=== PATIENT | male | born 1980 | race Caucasian/White ===

== ENCOUNTER 2021-02-20 20:37 | Emergency (ER) | payer OTHER ==
[~2021-02-20] VITALS: Ht 182.9 cm; Wt 81.7 kg
[2021-02-20] MEDS ORDERED: COMPAZINE5 M1 PO (20:53)
[2021-02-20] MEDS ORDERED: CARAFATE1 GM/10 ML PO (20:53)
[2021-02-20] MEDS ORDERED: PHENERGAN25 MG/1 ML (20:53)
[2021-02-20] MEDS ORDERED: CHLORPROMAZINE100 MG PO (20:53)
[2021-02-20] MEDS ORDERED: AMITRIPTYLINE H10 M1 PO (20:53)
[2021-02-20] MEDS ORDERED: PRILOSEC2.5 MG PO (20:54)
[2021-02-21 00:41] VITALS: BP 133/97
== END 2021-02-21 00:41 | disposition home or self-care (01) ==
LOC: M.ERS 20:37
DX: S05.31XA Ocular laceration without prolapse or loss of intraocular tissue, right eye, initial encounter (principal); S00.212A Abrasion of left eyelid and periocular area, initial encounter; Z90.49 Acquired absence of other specified parts of digestive tract; Z79.899 Other long term (current) drug therapy; W01.0XXA Fall on same level from slipping, tripping and stumbling without subsequent striking against object, initial encounter; Y93.89 Activity, other specified; Y92.89 Other specified places as the place of occurrence of the external cause; Y99.8 Other external cause status

== ENCOUNTER 2021-03-16 13:29 | Emergency (ER) | payer OTHER ==
[~2021-03-16] VITALS: Ht 185.4 cm; Wt 79.4 kg
[~2021-03-16 13:29] MED LIST: AMITRIPTYLINE H10 M1 PO; CARAFATE1 GM/10 ML PO; CHLORPROMAZINE100 MG PO; COMPAZINE5 M1 PO; PHENERGAN25 MG/1 ML; PRILOSEC2.5 MG PO
[2021-03-16 14:43] LABS: ABSOLUTE BASOPHILS 0.1 thou/uL (0.0-0.2); ABSOLUTE EOSINOPHILS 0.1 thou/uL (0.0-0.7); ABSOLUTE LYMPHOCYTES 1.5 thou/uL (0.8-5.3); ABSOLUTE MONOCYTES 1.2 thou/uL (0.0-1.2); ABSOLUTE NEUTROPHILS 12.1 thou/uL (1.6-8.1); BASOPHILS 0.7 %; EOSINOPHILS 0.4 %; HEMATOCRIT 46.6 % (42.0-52.0); HEMOGLOBIN 16.2 gm/dL (14.0-18.0); LYMPHOCYTES 10.1 %; MCH 32.1 pg (26.0-34.0); MCHC 34.8 g/dL (28.0-37.0); MCV 92.3 fL (80.0-100.0); MONOCYTES 7.9 %; MPV 7.1 fl. (7.2-11.1); NUCLEATED RBCS 0 /100WBC; PLATELET COUNT* 471 thou/uL (150-400); POLYS 80.9 %; RBC 5.05 mil/uL (4.50-6.00); RDW-CV 13.7 % (10.5-14.5); WBC 14.9 thou/uL (4.0-11.0)
[2021-03-16 14:45] LABS: POTASSIUM 3.6 mmol/L (3.5-5.1)
[2021-03-16 16:05] VITALS: BP 123/85
--- NOTE | 2021-03-16 16:16 | EKG ---
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 : 1980 Requested By: Vasu Clements Order Number: [id number] MD: Alton Anderson Measurements Intervals [place] Rate: 120 P: 47 IA: 132 QRS: 10 QRSD: 92 T: 77 QT: 316 QTc: 447 Interpretive Statements Sinus tachycardia Multiple ventricular premature complexes Probable left atrial enlargement Nonspecific T abnormalities, lateral leads Baseline wander in lead(s) I,II,aVR No previous ECG available for comparison Electronically Signed On 03-16-2021 16:15:52 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
== END 2021-03-16 16:07 | disposition home or self-care (01) ==
LOC: M.ERS 13:29
PROVIDERS: Physician Assistant
DX: R11.2 Nausea with vomiting, unspecified (principal); R10.30 Lower abdominal pain, unspecified; Z90.49 Acquired absence of other specified parts of digestive tract; Z79.899 Other long term (current) drug therapy

== ENCOUNTER 2021-03-31 15:19 | Emergency (ER) | payer OTHER ==
[~2021-03-31] VITALS: Ht 182.9 cm; Wt 79.4 kg
[2021-03-31 15:25] VITALS: BP 130/90
== END 2021-03-31 16:40 | disposition home or self-care (01) ==
LOC: M.ERS 15:19
DX: R11.15 Cyclical vomiting syndrome unrelated to migraine (principal); Z90.49 Acquired absence of other specified parts of digestive tract; Z79.899 Other long term (current) drug therapy

== ENCOUNTER 2021-04-10 07:53 | Emergency (ER) | payer OTHER ==
[~2021-04-10] VITALS: Ht 182.9 cm; Wt 79.4 kg
[2021-04-10 08:30] VITALS: BP 154/104
== END 2021-04-10 08:31 | disposition home or self-care (01) ==
LOC: M.ERS 07:53
DX: R11.15 Cyclical vomiting syndrome unrelated to migraine (principal); Z79.899 Other long term (current) drug therapy

== ENCOUNTER 2021-05-09 05:27 | Emergency (ER) | payer OTHER ==
[~2021-05-09] VITALS: Ht 182.9 cm; Wt 79.4 kg
[2021-05-09 06:06] VITALS: BP 158/108
== END 2021-05-09 08:18 | disposition left against medical advice (07) ==
LOC: M.ERS 05:27
DX: R11.2 Nausea with vomiting, unspecified (principal); Z53.21 Procedure and treatment not carried out due to patient leaving prior to being seen by health care provider

== ENCOUNTER 2021-05-24 06:17 | Emergency (ER) | payer OTHER ==
[~2021-05-24] VITALS: Ht 182.9 cm; Wt 79.4 kg
[2021-05-24 06:38] VITALS: BP 157/121
== END 2021-05-24 08:57 | disposition left against medical advice (07) ==
LOC: M.ERS 06:17
DX: R11.2 Nausea with vomiting, unspecified (principal); E86.0 Dehydration; Z53.21 Procedure and treatment not carried out due to patient leaving prior to being seen by health care provider; Z90.49 Acquired absence of other specified parts of digestive tract; Z98.890 Other specified postprocedural states

== ENCOUNTER 2021-06-03 05:40 | Emergency (ER) | payer OTHER ==
[~2021-06-03] VITALS: Ht 182.9 cm; Wt 83.9 kg
[2021-06-03 06:26] VITALS: BP 163/110
== END 2021-06-03 06:26 | disposition home or self-care (01) ==
LOC: M.ERS 05:40
DX: R11.2 Nausea with vomiting, unspecified (principal); Z90.49 Acquired absence of other specified parts of digestive tract; Z79.899 Other long term (current) drug therapy